=== PATIENT | male | born 1995 | race African-American/Black ===

== ENCOUNTER 2017-01-26 20:25 | Inpatient (IN) | payer OTHER ==
--- NOTE | ~2017-01-26 | CT71 ---
[facility] A Service of [facility] RADIOLOGY TEXT RESULTS PATIENT: YESI ALLEN LOCATION: [place] [address]23 : [birth year] UNIT #: [id number] AGE: [address]: Cristo Higginbotham MD SEX: M ORDER DR: [id number] [place] [id number] [facility]. [place], [place] [address] [id number] I MR#: [id number] Acc #: [id number] NAME: YESI ALLEN : 1995 SEX: M STUDY DATE/TIME: 01/26/2017 20:36 UNIT: [facility] ROOM: [facility] STUDY DESCRIPTION: CT Head Wo Contrast Attending Physician: Cristo Higginbotham M.D. Ordering Physician: William Neil D.O. Primary Care Physician: Bre Wick MEDICAL IMAGING REPORT This report is preliminary unless electronic signature is present EXAM Noncontrast head CT. HISTORY: Seizure today, unresponsive, on a ventilator. patient with cerebral palsy. The CT exam was performed with one or more of the following radiation dose reduction techniques: automatic exposure control, adjustment of mA and/or kV according to patient size, and iterative reconstruction. FINDINGS Axial noncontrast imaging of brain demonstrates the brain parenchyma to be normal. No mass, mass effect or midline shift. No hemorrhage or abnormal extraaxial fluid collections. The skull base, mastoids unremarkable. Sphenoid and ethmoid sinus mucosal disease. Fluid noted in the nasal cavity. This is not unexpected in this patient who is apparently intubated. IMPRESSION No acute intracranial abnormality identified. Dictated by... Piero Mcfarland M.D. THIS IS AN ELECTRONICALLY VERIFIED REPORT Piero Mcfarland M.D. at 01/27/2017 6:33 PM FEDE/roxanna TD: 01/27/2017 09:39 JOB #: [id number] [facility] A Service [facility] RADIOLOGY TEXT RESULTS PATIENT: YESI ALLEN LOCATION: [facility]3-23 : [birth year] UNIT #: [id number] AGE: [address]: Cristo Higginbotham MD SEX: M ORDER DR: MEDICAL IMAGING REPORT COPY
--- NOTE | ~2017-01-26 | CR72 ---
[facility] A Service of [facility] RADIOLOGY TEXT RESULTS PATIENT: YESI ALLEN LOCATION: [address] : [birth year] UNIT #: [id number] AGE: [address]: Cristo Higginbotham MD SEX: M ORDER DR: [id number] [facility] [address] [place], [place] [address] [id number] I MR#: [id number] Acc #: [id number] NAME: YESI ALLEN : 1995 SEX: M STUDY DATE/TIME: 01/27/2017 6:17 UNIT: [facility] ROOM: [facility] STUDY DESCRIPTION: CR Chest Single View Portable Attending Physician: Crsito Higginbotham M.D. Ordering Physician: Julieth Trevino M.D. Primary Care Physician: Bre Wick MEDICAL IMAGING REPORT This report is preliminary unless electronic signature is present EXAM Portable chest 01/27 COMPARISON 01/26 HISTORY Respiratory failure for 2 days. Seizures on ventilator FINDINGS AP view of the chest is obtained. Cardiac size is stable. Severe kyphoscoliosis is present. Continues to be infiltrates in the right upper and right lower lobe. Left lung appears significantly clear and there are improved lung volumes. Neural stimulator device is present in the left chest wall. CONCLUSION 1. ET tube in good position. 2. Slightly better aeration of the lungs with continued infiltrates in the right upper lower lobe. Dictated by... Cameron Ceja M.D. THIS IS AN ELECTRONICALLY VERIFIED REPORT Cameron Ceja M.D. at 01/27/2017 3:37 PM MORENITA/marina TD: 01/27/2017 12:12 JOB #: [id number] MEDICAL IMAGING REPORT COPY
--- NOTE | ~2017-01-26 | CO ---
Unit #: [id number] #: [id number] Patient: YESI ALLEN [id number] [address] [place], [place] [address] [id number] I MR#: [id number] NAME: YESI ALLEN ROOM: [facility] Age: 21 Sex: M Admission Date: 01/26/2017 : 1995 Attending Physician: Cristo Higginbotham M.D. Primary Care Physician: Bre Wick Consultation Date: 01/27/2017 CONSULTATION REPORT HISTORY OF PRESENT ILLNESS This is a 20-year-old gentleman with a history of seizures occurring approximately 3 times a week; however, he only developed status epilepticus requiring hospitalization about every 2 to 3 years. Yesterday morning, the patient had a seizure approximately 9:00 a.m. He had a repeat seizure about 3:00 in the afternoon, oral medication which is given to him usually did not help. Therefore, the patient was brought to the hospital and placed on a ventilator and placed on propofol. Sputum is pending; however, chest x-ray shows kind of diffuse hazy infiltrates, possibly some increased infiltrate in the right lower lobe and right middle lobe. The patient has no history of prior symptoms. Urinalysis was negative. His seizure medications have not been changed lately and most of the history is obviously obtained from the sister and mother as the patient is on the bed and unable to respond. The patient has not had any seizure-like activity since initially placed on propofol and we have been asked to try to wean down propofol. Neurology is seeing. The patient's influenza is negative. Procalcitonin however is 0.67. PAST MEDICAL HISTORY Cerebral palsy with dystonia seizures; port, status post removal; PEG tube; vagal nerve stimulator; baclofen pump; previous hip fracture secondary to seizures. ALLERGIES The patient has history of allergy to Ativan as well to Tegretol and oxycodone. HOME MEDICATIONS Include Maalox 30 mg at bedtime, methadone 5 mg per G-tube t.i.d., Carafate 1 g q.i.d., Tylenol 325 mg every 6 hours p.r.n., Proventil nebulizer q.4 hours p.r.n., calcium carbonate 1600 mg p.o. daily, Klonopin 1 mg at bedtime, Valium 12.5 mg p.r.n. daily, acidophilus one capsule 3 times daily, perampanel 10 mg at bedtime, Phenobarb 9.275 per PEG twice daily, Rufinamide p.o. three times daily, Lacosamide 200 mg per Dobbhoff tube b.i.d. SOCIAL HISTORY The patient lives at home with family. Lifelong nonsmoker. No alcohol. He is fed 6 cans of Ensure a day and free water flushes x2. FAMILY HISTORY Positive for seizures. REVIEW OF SYSTEMS Unit #: [id number] #: [id number] Patient: YESI ALLEN Obtainable only from family and is noncontributory as the patient is intubated. PHYSICAL EXAMINATION VITAL SIGNS: T-current 98.4, respiratory rate 15, pulse is 78, blood pressure 103/71. The patient is on AC 500, rate of 16, PEEP of 5, 50% FiO2. In's and out's 490 and 110. CHEST: Decreased breath sounds bilaterally. CARDIOVASCULAR: Regular rate. No gallop. ABDOMEN: Soft, nontender, and nondistended. HEENT: Head is normocephalic and atraumatic. DIAGNOSTIC STUDIES LABORATORY RESULTS: White count 16.5, hemoglobin 8.3, platelets of 308. BUN and creatinine 11/0.8, 91 on glucose, 23 on bicarb. Albumin is 2.9. ASSESSMENT AND PLAN 1. Status epilepticus. Urinalysis is negative. EEG is pending. We are going to try to wean him off propofol and change him to Versed. If we are able to control him with p.r.n., we will see if we can get the EEG this morning. We are going to do a viral respiratory panel. We are going to try to wean propofol, we are sending for strep pneumo antigen and Legionella antigen. 2. Seizure trigger were concerned for infection. The patient is being covered with Zosyn for aspiration pneumonia. I am going to add azithromycin for atypical pneumonia. Family states that he has had pneumonia approximately 2 weeks ago, though more likely this is probably new infection secondary to the aspiration. We are going to see if the patient may be extubated today following propofol weaning and if the patient is able to come off the Versed, the patient is on his home antiseizure medications. These will be adjusted by Neurology. Thank you very much for this consult and allowing us to participate in the care of this patient. Please page me at [phone] if you have any questions. Dictated by... Jovita Villatoro/john TD: 01/28/2017 05:15 JOB #: [id number] CONSULTATION REPORT X Dakota Tang MD X CONSULTATION REPORT
--- NOTE | ~2017-01-26 | CR72 ---
[facility] A Service of [facility] & [facility] RADIOLOGY TEXT RESULTS PATIENT: YESI ALLEN LOCATION: [address] : [birth year] UNIT #: [id number] AGE: [address]: Cristo Higginbotham MD SEX: M ORDER DR: [id number] [facility] [address] [place], [place] [address] [id number] I MR#: [id number] Acc #: [id number] NAME: YESI ALLEN : 1995 SEX: M STUDY DATE/TIME: 01/26/2017 20:28 UNIT: [facility] ROOM: [facility] STUDY DESCRIPTION: CR Chest Single View Portable Attending Physician: Cristo Higginbotham M.D. Ordering Physician: William Neil D.O. Primary Care Physician: Bre Rios M.D. MEDICAL IMAGING REPORT This report is preliminary unless electronic signature is present EXAM AP portable chest. HISTORY Seizures, shortness of air. Endotracheal tube placement. FINDINGS Portable view of the chest demonstrates endotracheal tube in satisfactory position, 4.4 cm above art. There are low lung volumes with some patchy right upper lobe parenchymal opacity which could represent possible aspiration pneumonia. Mild diffuse pulmonary vascular congestion. Air distension of the stomach may be related to ventilatory efforts. Neural stimulator noted over the left chest lead extending into the cervical region. No visible pneumothorax. Heart and mediastinum unremarkable. Dictated by... Piero Mcfarland M.D. THIS IS AN ELECTRONICALLY VERIFIED REPORT Piero Mcfarland M.D. at 01/27/2017 6:33 PM FEDE/stephon TD: 01/27/2017 09:36 JOB #: [id number] MEDICAL IMAGING REPORT COPY
--- NOTE | ~2017-01-26 | DS ---
Unit #: [id number] #: [id number] Patient: YESI ALLEN [id number] [address] [place], [place] [address] [id number] I MR#: [id number] NAME: YESI ALLEN ROOM: 553 Age: 21 Sex: M Admission Date: 01/26/2017 : 1995 Discharge Date: Attending Physician: Cristo Higginbotham M.D. Primary Care Physician: Bre Rios M.D. DISCHARGE SUMMARY REASON FOR ADMISSION Status epilepticus. HISTORY OF PRESENT ILLNESS/HOSPITAL COURSE The patient is a 21-year-old nonverbal male with underlying history of cerebral palsy, MRDD, dystonia, chronic contracted state, was brought in by the patient's mother secondary to intractable seizure activity while the patient was at home. Complete history as well as review of systems was elicited from her as the patient essentially was nonverbal. Secondary to respiratory compromise as well as ongoing seizure activity, the patient was electively intubated in the emergency room and subsequently placed in ICU. Consultation was placed to fiberglass boat builder Dr. Tang saw and evaluated the patient while he was there, concern for possible aspiration given the recurrent seizure activity. Therefore, he was placed on IV Zosyn. In regard to his respiratory status, Dr. Tang followed the patient. Gradually, the patient was transitioned off ventilator. His IV Zosyn was transitioned into Augmentin suspension and he has otherwise done well. His blood cultures did not reveal any acute bacterial growth. His sputum culture did reveal Klebsiella. In regard to his seizure activity as well as intractable seizures, we did place consultation of Dr. Floyd of Neurology Services. His medications were adjusted. Please see below for details. It should be noted that the patient's mother states that the patient is well supported as an outpatient with an outpatient neurologist and she stated that she will discuss with him at the time of discharge. The patient did have decreased hemoglobin at one point, his hemoglobin did drop close to 6.7. He was transfused 2 units of packed red blood cells. Consultation was placed to Dr. Osman of Gastroenterology Service. The patient did receive Protonix drip. I initiated discussion and consideration of possible upper GI and/or possible colonoscopy; however, today at time of discharge, the patient's hemoglobin now stands at 9.9. His MCV is also decreased to 67, seems likely the patient is iron deficient and I did recommend to her that at some point in time, the patient should have endoscopic evaluation in addition to iron replacement and she expressed understanding and she wishes to take the patient home today. From medical standpoint, the patient appears currently stable. Overall, his long-term prognosis secondary to his associated comorbid conditions is poor and the patient's mother is aware. Unit #: [id number] #: [id number] Patient: YESI ALLEN FINAL DISCHARGE DIAGNOSES 1. Intractable seizures. 2. Acute respiratory failure secondary to presumed aspiration pneumonia. 3. Cerebral palsy. 4. Chronic contracted state. 5. Percutaneous endoscopic gastrostomy tube placement in the past. 6. Prior history of baclofen pump placement. 7. Anemia likely multifactorial secondary to iron deficiency, may be occult GI loss. Outpatient evaluation is recommended. 8. Klebsiella sputum. FINAL DISCHARGE MEDICATIONS Albuterol nebulizer solution q.4 p.r.n.; Tylenol 650 mg G-tube q.6 p.r.n.; Vimpat 300 mg G-tube b.i.d.; Keppra 500 mg G-tube daily x2 days, then discontinue; probiotic t.i.d.; Klonopin q.h.s.; phenobarbital b.i.d.; Diastat 10 mg p.r.n.; Carafate 1 g G-tube q.6; methadone 5 mg G-tube t.i.d.; Augmentin suspension 875 mg b.i.d. x7 days; Protonix suspension G-tube b.i.d.; ferrous sulfate liquid G-tube b.i.d. DISCHARGE CONDITION Stable. DISCHARGE DISPOSITION Home. Dictated by... Jovita Ford/john TD: 02/01/2017 00:29 JOB #: [id number] DISCHARGE SUMMARY X Cristo Higginbotham MD X DISCHARGE SUMMARY
--- NOTE | ~2017-01-26 | A ---
[facility] DATE: 01/27/17 Patient: YESI ALLEN Physician: LINK Address: [address] Room/Bed: [address], Zip: [place] [address] Admit Date: 01/26/17 Date of : [birth year] Height: 5 0 Weight: 99 45 NUTRITIONAL ASSESSMENT: REASON: ENTERAL NUTRITION/ NPO STATUS IN ICU ASSESSMENT 21 YO MALE ADMITTED FOR STATUS EPILEPTICUS PMH: Ulcerative esophagitis (recent diagnosis per pt's mother), acute GI bleed, cerebral palsy, dystonia, epilepsy, contracted legs, PEG (pediatric per RN report), vagal nerve stimulator, hip fracture, pancreatitis Anthropometrics: Ht: 5'0" Adm wt: 45 kg BMI: 19.4 IBW: 48.2 kg, 93% IBW Labs: Ca++ 8.1 Alb 2.9 Meds: Propofol @ 13.5 mL/hr, baclofen pump, versed, NaCl, protonix, KCl I/O & Bowel function: 490/110, last BM unknown, pediatric PEG tube per RN report (family brought in adapter) Skin Integrity: Small blister to coccyx Scars- BLE/ chest/ abdomen Baclofen pump RLQ Edema: none noted Estimated Nutrition Needs: 4170-3158 kcals (35-40 kcals/kg) 67-81 grams protein (1.5-1.8 grams/kg) Assessment: Chart reviewed, events noted. Pt admitted for status epilepticus and possible aspiration PNA. Pt is intubated and sedated in the ICU. Propofol is providing 356 kcals from lipids at this time; however, RN reports it will be discontinued after the current bottle. Pt has a pediatric PEG tube present upon admission per RN report. RD spoke with the pt's mother (and caregiver) at bedside. The pt's mother reports that the pt has lost ~16# in ~3 months due to being sick, in a out of the hospital. Apparently the pt typically consumes food PO and receives six Ensure via his PEG with gravity bag for supplemental nutrition due to weight loss. Pt's mother also reports that he has gastritis, and his MD suggested that he eats only soft foods for now. Pt's mother states that he has had multiple MECHANICAL CAR CHECKER evaluations, and that she uses thickener in his drink "sometimes"; however, she does not seem to think he was supposed to only consume thickened liquids, and also gives him thin liquids. RD reported concern to RN about this, as the pt has aspiration PNA noted in chart. [facility] DATE: 01/27/17 Patient: YESI ALLEN Physician: LINK Address: [address] [place] [address] Room/Bed: [address], Zip: [place] [address] Admit Date: 01/26/17 Date of : [birth year] Height: 5 0 Weight: [address] also has concerns that the pt should not be receiving Ensure six times per day as his sole enteral nutrition source, as it is not formulated for enteral, sole source nutrition. RD confirmed this with [facility] nutritional yeast supervisor and discussed this further with RN and the pt's mother. Pt's mother reports that they do not want to use Jevity and will continue to use Ensure after discharge regardless of what RD recommends. RD explained that there are several other enteral nutrition options, and explained that Vital 1.5 would be recommended while the pt is here. Please see recommendations below. Dx: Inadequate protein-energy intake RT clinical condition AEB NPO status. Intervention: 1. Enteral nutrition once medically feasible 2. MECHANICAL CAR CHECKER once extubated Monitoring, Evaluation and Goals: 1. Enteral nutrition; provide >80% goal volume x 24 hrs 2. Labs; WNL 3. Weight; prevent weight loss, promote gradual weight gain 4. Skin; prevent breakdown Recommendations: 1. Once medically feasible, start continuous enteral nutrition with Vital 1.5 @ 20 mL/hr. Increase by 10 mL q 8 hrs as tolerated to goal of 50 mL/hr. This will provide: 1800 kcals/ 81 grams protein/ 912 mL free H20 2. If the pt is extubated, consult MECHANICAL CAR CHECKER to evaluate the pt before PO diet advances. Pt has noted aspiration PNA, and pt's mother reports that he has had several MECHANICAL CAR CHECKER evaluations in the past. See assessment above. Pt is at moderate-severe nutritional risk. Respectfully, MAXIMILIANO SOTELO RD, LD [facility] cc: client file
--- NOTE | ~2017-01-26 | HP ---
Unit #: [id number] #: [id number] Patient: YESI ALLEN [id number] [address] [address] [id number] I MR#: [id number] NAME: YESI ALLEN ROOM: [facility] Age: 21 Sex: M Admission Date: 01/26/2017 : 1995 Attending Physician: Julieth Trevino M.D. Primary Care Physician: Bre Rios M.D. HISTORY AND PHYSICAL CHIEF COMPLAINT Status epilepticus. HISTORY This 21-year-old male with cerebral palsy and dystonia, also history of seizures, is admitted for status epilepticus. Patient currently is intubated, and history is obtained from mother at bedside. She states the patient generally has a seizure once a week or every other week. He does have a vagal nerve stimulator in place and is on multiple anti-epileptic drugs. Today, he had a short seizure this afternoon which she treated with Diastat. He then had a second seizure which lasted, I'm told, about 50 minutes from the time it started until the time he presented to this ER. He was electively intubated by the ER physician, given IV fluids, 5 mg of IV versed, then given a gram of Keppra, 200 mg of Vimpat. Chest x-ray is suspicious for right upper lobe aspiration pneumonia. He was therefore treated with Zosyn, vancomycin, tobramycin. The case was also discussed with Dr. Floyd. PAST MEDICAL HISTORY 1. Cerebral palsy with dystonia. 2. Seizures. 3. Port, which was later removed. 4. PEG tube. 5. Vagal nerve stimulator. 6. Baclofen pump. 7. Previous hip fracture secondary to seizures. Hardware was later removed. ALLERGIES Ativan causing decreased respirations. Also allergic to Tegretol and oxycodone. HOME MEDICATIONS 1. Vimpat. 2. Topamax. 3. Phenobarb. 4. Banzel. 5. Fycompa. 6. Protonix. 7. Diastat rectal gel. 8. Klonopin. 9. Clonidine. 10. Atarax. Unit #: [id number] #: [id number] Patient: YESI ALLEN The nurses are getting me a list. FAMILY HISTORY Seizures. SOCIAL HISTORY The patient lives with family. He is a lifelong nonsmoker does not drink alcohol. He is usually fed six cans of Ensure each day with 150 mL of free water flushes. REVIEW OF SYSTEMS Impossible to obtain as patient currently is intubated and is sedated. PHYSICAL EXAMINATION GENERAL APPEARANCE: Thin, young 21-year-old male who is orally intubated. VITAL SIGNS: Temperature 97.8, pulse was as high as 140, currently is 60, respirations 27, initial blood pressure 125/79. O2 saturation is 100% on current vent settings. HEENT: Eyes PERRLA. Pharynx - patient is orally intubated. NECK: Supple without adenopathy or thyromegaly. CHEST: Clear. CARDIAC: Normal S1 and S2 without murmur. There is a vagal nerve stimulator left upper chest. ABDOMEN: Bowel sounds are diminished. There is a PEG tube in place. Nontender. No hepatosplenomegaly or masses. EXTREMITIES: Without edema. The patient does have flexion contractions of his legs bilaterally. NEUROLOGIC EXAM: The patient currently is sedated on a ventilator. DIAGNOSTIC STUDIES LABORATORY: Admission labs - hematocrit is 32.8 with an MCV of 64, white blood count is 11, normal platelet count. One band noted. SMA-12 - glucose 121, chloride is 99, albumin is 3.4, alkaline phos. 104, lactic acid 3.3. Phenobarb 37. ABG - pH 7.11, pCO2 57, pO2 191, O2 saturation 97.4% on tidal volume 450, AC 14, FIO2 60%, PEEP of 5. Urine tox screen positive for methadone, benzos and barbiturates. Urinalysis - 1+ protein. IMAGING: Chest x-ray - right upper lobe infiltrate. Head CT - no acute disease. CARDIOVASCULAR: EKG - sinus tachycardia, rate 110. ASSESSMENT 1. Status epilepticus requiring intubation. 2. Aspiration pneumonia. 3. Microcytic anemia: Patient was [facility] and GI bleed about a month ago. 4. Cerebral palsy with PEG tube in place, immobilization syndrome, Unit #: [id number] #: [id number] Patient: YESI ALLEN history of seizures on multiple anti-epileptic drugs and with a vagal nerve stimulator. PLANS 1. IV fluids. 2. Neurology was consulted. 3. Anti-epileptic drugs to be given. 4. Antibiotics pending sputum blood cultures. 5. Pulmonary consultation. 6. SCDs for DVT prophylaxis. 7. Request old records from [facility]. 8. NG-tube will be placed. Dictated by Julieth Trevino M.D. AML/df TD: 01/27/2017 05:25 JOB #: [id number] HISTORY AND PHYSICAL X Julieth Trevino MD X HISTORY AND PHYSICAL
--- NOTE | ~2017-01-26 | EE ---
Unit #: [id number] #: [id number] Patient: YESI ALLEN [id number] [address] [address] [id number] I MR#: [id number] NAME: YESI ALLEN : 1995 SEX: M STUDY DATE/TIME: 01/27/2017 UNIT: [facility] ROOM: [facility] STUDY DESCRIPTION: EEG Attending Physician: Cristo Higginbotham M.D. Referring Physician: Julieth Trevino M.D. Primary Care Physician: Bre Wick NEURODIAGNOSTICS REPORT EXAM Electroencephalogram. REASON FOR STUDY Seizures and status. No prior EEGs available to compare. EEG DESCRIPTION This is an inpatient, portable, digitally recorded multi-montage adult EEG with leads placed according to the International 10-20 System. Hyperventilation and photic stimulation was not done. This EEG shows background slowing. Most of the activity was 4-5 Hz. The patient did have stage 2 sleep. There was some subtle slowing seen between C3 and P3 and sometimes between F3 and C3 and occasionally some phase reversing was seen mostly between C3 and P3, but looked like slow wave phase reversing, not active spike and wave-type discharges. This was a reactive EEG. I saw the patient while the patient was having EEG done. There is nothing suggesting seizures, actively status, or interictal discharges, though he was not having any clinical events either. IMPRESSION Abnormal EEG with diffuse slowing and some focal features with central parietal slowing and some phase reversing on the left side. Nothing suggesting active seizure or status, so clinical correlation is recommended. Dictated by... Jovita Carrizales/annelise TD: 01/28/2017 20:58 JOB #: [id number] Unit #: [id number] #: [id number] Patient: YESI ALLEN NEURODIAGNOSTICS REPORT X Lili Floyd MD NEURODIAGNOSTICS REPORT
--- NOTE | ~2017-01-26 | CR72 ---
[facility] A Service of [facility] & [facility] RADIOLOGY TEXT RESULTS PATIENT: YESI ALLEN LOCATION: [place] [address] : [birth year] UNIT #: [id number] AGE: [address]: Cristo Higginbotham MD SEX: M ORDER DR: [id number] [facility] [address] [place], [place] [address] [id number] I MR#: [id number] Acc #: [id number] NAME: YESI ALLEN : 1995 SEX: M STUDY DATE/TIME: 01/31/2017 4:01 UNIT: [facility] ROOM: [facility] STUDY DESCRIPTION: CR Chest Single View Portable Attending Physician: Cristo Higginbotham M.D. Ordering Physician: Martin Tang M.D. Primary Care Physician: Ber Rios M.D. MEDICAL IMAGING REPORT This report is preliminary unless electronic signature is present EXAM AP portable chest 01/31/2017. HISTORY Respiratory failure. Exam for followup. TECHNIQUE AP portable chest x-ray. FINDINGS The examination is stable following extubation since 01/28/2017. Persistent patchy infiltrate in the right upper and right lower lobe. Left lung clear. Heart size normal. Central venous catheter in good position. Severe congenital scoliosis. Vagus nerve stimulator in place. IMPRESSION Stable portable chest radiograph following extubation since 01/28/2017. Dictated by... iRgo Chaparro M.D. THIS IS AN ELECTRONICALLY VERIFIED REPORT Rigo Chaparro M.D. at 02/01/2017 5:30 AM ANA/casey TD: 02/01/2017 02:52 JOB #: [id number] MEDICAL IMAGING REPORT COPY
--- NOTE | ~2017-01-26 | CR72 ---
[facility] A Service of [facility] & [facility] RADIOLOGY TEXT RESULTS PATIENT: YESI ALLEN LOCATION: [address] : [birth year] UNIT #: [id number] AGE: [address]: Cristo Higginbotham MD SEX: M ORDER DR: [id number] [facility] [address] [place], [place] [address] [id number] I MR#: [id number] Acc #: [id number] NAME: YESI ALLEN : 1995 SEX: M STUDY DATE/TIME: 01/27/2017 16:14 UNIT: [facility] ROOM: [facility] STUDY DESCRIPTION: CR Chest Single View Portable Attending Physician: Cristo Higginbotham M.D. Ordering Physician: Julieth Trevino M.D. Primary Care Physician: Bre Wick MEDICAL IMAGING REPORT This report is preliminary unless electronic signature is present EXAM Single view chest HISTORY Central line placement today. COMPARISON: 01/27/2017 at 06:17 hours FINDINGS Endotracheal tube remains in satisfactory position. There has been placement of a left neck approach central line terminating near the cavoatrial junction. Deformity of the thorax suggests underlying scoliosis. Electronic device seen over the left chest with leads extending into the left neck region may represent a vagal stimulator. Small amount of right upper lobe parenchymal opacities suggest focal airspace disease or atelectasis. Right-sided volume loss with elevation right hemidiaphragm. The heart and mediastinum unremarkable. No visible pneumothorax. Dictated by... Piero Mcfarland M.D. THIS IS AN ELECTRONICALLY VERIFIED REPORT Piero Mcfarland M.D. at 01/28/2017 2:05 PM FEDE/roxanna TD: 01/28/2017 08:08 JOB #: [id number] MEDICAL IMAGING REPORT COPY
--- NOTE | ~2017-01-26 | EKG ---
PATIENT: YESI ALLEN UNIT #: [id number] Ventricular Rate: 111 BPM Atrial Rate: 111 BPM P-R Interval: 126 ms QRS Duration: 72 ms Q-T Interval: 300 ms QTC Calculation(Bezet): 408 ms P Welch: 67 degrees Calculated R Welch: 62 degrees Calculated T Welch: 39 degrees Diagnosis Line: Sinus tachycardia Diagnosis Line: Possible Left atrial enlargement Diagnosis Line: Nonspecific T wave abnormality Diagnosis Line: Abnormal ECG Diagnosis Line: No previous ECGs available Diagnosis Line: Confirmed by GEOVANY LYLE MD ([id number]) on Diagnosis Line: 01/27/2017 8:18:36 AM INTERPRETING MD: VALDO ARAGON
--- NOTE | ~2017-01-26 | FU ---
[facility] Nutrition Therapy DATE: 01/30/17 Patient: YESI ALLEN Physician: LINK Address: [address] Room/Bed: [address], Zip: [place] [address] Admit Date: 01/26/17 Date of : [birth year] Height: 5 0 Weight: 139 63.5 NUTRITION MONITORING/FOLLOW-UP: Reason: Nurtrition follow up Anthropometrics: Ht: 60" Wt: 45 kg BMI: 19.4 Wt 01/30: 63.5 kg Labs: Na+ 134 K+ 3.2 BUN <5 Ca++ 7.3 Alb 2.4 Mg++ 1.5 Meds: Protonix, miralax, MgSO4, KCl, NaCl I&O's: 3856/4790, last BM 01/25, abdomen soft, nondistended Skin: No changes noted Edema: none noted Estimated Nutrition Needs: 5509-7615 kcals (35-40 kcals/kg) 67-81 grams protein (1.5-1.8 grams/kg) Diet: NPO Assessment: Chart reviewed, events noted. Pt remains in ICU, is now extubated and will likely transfer to tele floor today per RN report. Pt remains NPO without any enteral nutrition. Of note, the pt has been NPO/ no nutrition since admission (x [address] recommended to RN that the pt has an COMPUTER NETWORKER evaluation, as the pt's mother previously reported that the pt eats and receives enteral nutrition. Please see recommendations below. Dx: Inadequate protein-energy intake RT clinical condition AEB NPO status- REMAINS, NO IMPROVEMENT. Intervention: 1. COMPUTER NETWORKER 2. Enteral nutrition once medically feasible Monitoring, Evaluation and Goals: 1. Enteral nutrition; provide >80% estimated needs while the pt remains NPO 2. Labs; WNL: electrolytes 3. Weight; prevent weight loss 4. Skin; promote healing [facility] Nutrition Therapy DATE: 01/30/17 Patient: YESI ALLEN Physician: LINK Address: [facility] JOSE MARES Room/Bed: [address], Zip: [place] [address] Admit Date: 01/26/17 Date of : [birth year] Height: 5 0 Weight: 139 63.5 Recommendations: 1. Consider COMPUTER NETWORKER evaluation, as the pt remains NPO and his mother previously reported that he has had several COMPUTER NETWORKER evals in the past. Pt's mother has also used thickened liquids; however, she reported that she does not always use them. 2. Initiate continuous enteral nutrition to meet 100% of the pt's nutrient needs while he remains NPO. Recommend starting Vital 1.5 @ 20 mL/hr. Increase by 10 mL q 6 hrs as tolerated to goal of 50 mL/hr. This would provide: 1800 kcals/ 81 grams protein/ 912 mL free H20 If the pt tolerates Vital 1.5, may consider switching to a standard formula (Jevity 1.5) to determine tolerance Status: Pt is at moderate nutritional risk. RD will continue to follow. Respectfully, MAXIMILIANO SOTELO RD, LD [employer] and Nutritional Services [facility] cc: client file
--- NOTE | ~2017-01-26 | CR72 ---
[facility] A Service of [facility] & [facility] RADIOLOGY TEXT RESULTS PATIENT: YESI ALLEN LOCATION: [address] : [birth year] UNIT #: [id number] AGE: [address]: Cristo Higginbotham MD SEX: M ORDER DR: [id number] [facility] [address] [place], [place] [address] [id number] I MR#: [id number] Acc #: [id number] NAME: YESI ALLEN : 1995 SEX: M STUDY DATE/TIME: 01/28/2017 3:59 UNIT: [facility] ROOM: [facility] STUDY DESCRIPTION: CR Chest Single View Portable Attending Physician: Cristo Higginbotham M.D. Ordering Physician: Martin Tang M.D. Primary Care Physician: Bre Wick MEDICAL IMAGING REPORT This report is preliminary unless electronic signature is present EXAM AP portable chest DATE 01/28/2017 at 03:59 HISTORY 21-year-old male with shortness of breath, pneumonia, on the ventilator. Symptoms began on 01/26/2017. Status epilepticus. COMPARISON AP portable chest 01/27/2017 at 16:14 FINDINGS Ill-defined infiltrate is present within the right upper lobe adjacent to the minor fissure, unchanged. There may be a new mild right basilar atelectasis in the costophrenic angle. The left lung, however, remains clear. Heart size is stable and within normal limits. ET tube remains in the mid thoracic trachea. Left IJ central line tip extends to the cavoatrial junction. No visible pneumothorax. Stable asymmetric elevation of the right hemidiaphragm. Thoracolumbar scoliosis. A generator device projects over the left chest with lead extending into the left neck. IMPRESSION Right upper lobe airspace disease, unchanged. New or slight increase in right basilar atelectasis or infiltrate adjacent to the diaphragmatic margin compared to yesterday's study. Supporting lines and tubes appear stable. No visible pneumothorax. Dictated by... Melanie Zarate M.D. [facility] A Service of [facility] & [facility] RADIOLOGY TEXT RESULTS PATIENT: YESI ALLEN LOCATION: [facility]23 : [birth year] UNIT #: [id number] AGE: [address]: Cristo Higginbotham MD SEX: M ORDER DR: THIS IS AN ELECTRONICALLY VERIFIED REPORT Melanie Zarate M.D. at 01/28/2017 10:25 PM [facility]/alber TD: 01/28/2017 13:32 JOB #: [id number] MEDICAL IMAGING REPORT COPY
--- NOTE | ~2017-01-26 | CO ---
Unit #: [id number] #: [id number] Patient: YESI ALLEN [id number] [facility] [address] [place], [place] [address] [id number] I MR#: [id number] NAME: YESI ALLEN ROOM: [facility] Age: 21 Sex: M Admission Date: 01/26/2017 : 1995 Attending Physician: Cristo Higginbotham M.D. Primary Care Physician: Bre Wick Consultation Date: 01/27/2017 CONSULTATION REPORT PRIMARY CARE PHYSICIAN Bre Rios M.D. PRIMARY NEUROLOGIST Dr. Donis. REASON FOR CONSULTATION Status epilepticus. PATIENT IDENTIFICATION This is a 21-year-old right-handed male evaluated in ICU room 23 at [facility]. SOURCE OF INFORMATION Obtained from the patient's mother as well as the medical record and medical staff. HISTORY OF PRESENT ILLNESS This is a 21-year-old right-handed male with a past medical history of cerebral palsy with dystonia, epilepsy, vagal nerve stimulator, and PEG tube, who presented to [facility] with intractable seizures. According to his mother, he has a few seizures a month, usually relieved with Diastat at home. He also has a vagal nerve stimulator, which she states the battery was just recently replaced. She does state that it is on a "low setting." Apparently, he had a seizure yesterday and received Diastat around 3:00 p.m., but she reports she was unable to use it again as she was worried about his respiratory status and he had a further seizure event that lasted for over an hour. She tried the vagal nerve stimulator and reports that it did not work either. He was brought to the ER for further evaluation. His seizure was unrelenting. The patient was brought to this facility, where he was electively intubated by the ED physician given IV fluids, 5 mg of IV Versed, and was also given 1 g of Keppra and 200 mg of Vimpat. Chest x-ray was done, which was suspicious for right upper lobe aspiration pneumonia. Thus, he was started on antibiotics which included Zosyn, vancomycin, and tobramycin. The patient was admitted for further evaluation. The case was discussed with Dr. Floyd at that time. He is being continued on his home medications which his mother brought in today via his PEG tube. He was also started on Keppra in the ED out of concern for status epilepticus and his Vimpat was increased and I did speak with his mother and she states that he does not have an allergy to Keppra, but has an intolerance given behavioral change. Therefore, we will avoid going up on Keppra unless necessary and we will work on tapering that down when the patient is stable. She did note that he has an allergy to Unit #: [id number] #: [id number] Patient: YESI ALLEN Tegretol, which is not documented in the medical record. The patient was just recently treated at [facility] in a few weeks ago for GI bleeding and pneumonia. The patient's mother states that he has not been having any other problems. The patient is unable to provide any history or review of systems given his intubation and sedation and mental status. PAST MEDICAL HISTORY 1. Cerebral palsy with dystonia. 2. Epilepsy. The patient's mother states that he follows Dr. Donis with [facility]. 3. Port which has been removed. 4. Vagal nerve stimulator. She states that the battery was just replaced recently. 5. PEG tube. 6. Baclofen pump. 7. Previous hip fracture secondary to seizures. Hardware was later removed. ALLERGIES Ativan which causes decreased respirations, Tegretol, Oxycodone. HOME MEDICATIONS Include Maalox suspension, methadone, Carafate, Tylenol, Proventil, calcium carbonate, Klonopin, Valium, acidophilus lactobacillus, Fycompa, phenobarbital, Banzel, Vimpat. FAMILY HISTORY Positive for seizure disorder. SOCIAL HISTORY The patient lives with his mother and family. He is a lifelong nonsmoker and nondrinker. No illicit drug use. He is fed 6 cans of Ensure each day with 150 mL of free water flushes. REVIEW OF SYSTEMS Unable to obtain from the patient given his mental status. PHYSICAL EXAMINATION VITAL SIGNS: Temperature 98.6, pulse 91, respirations 12, blood pressure 101/65, oxygen saturation 100% on the ventilator. Height 5 feet 0 inches, weight 99 pounds, BMI 19. NEUROLOGIC: The patient is sedated, limiting neurologic exam. He does withdraw to noxious stimuli in the extremities. He has left gaze deviation and some roving eye movements, but again equal withdrawal to noxious stimuli in the extremities. Cranial nerve exam, unable to evaluate honeycutt of vision. Eyes are as discussed above. No ptosis or nystagmus or hippus seen. Extraocular movements are as discussed above. Strength of muscles of facial expression appear to be symmetric. Unable to assess hearing, tongue, uvula, or palate, head turning, or shoulder shrug. Neck appears to be supple. Motor exam, he withdraws bilaterally and equally to noxious stimuli. Sensory exam as discussed above. Gait and Romberg deferred. Reflexes, unable to elicit. Toes are mute. Coordination, unable to assess. DIAGNOSTIC STUDIES IMAGING STUDIES: CT of the head without contrast on 01/26/2017 shows no acute intracranial abnormality identified. Unit #: [id number] #: [id number] Patient: YESI ALLEN LABORATORY RESULTS: Legionella urine and strep pneumo are negative. Sputum culture; Gram stain sputum, many white blood cells, few epithelial cells, many gram-negative rods, moderate gram-positive cocci in pairs and chains. White count 16.5, hemoglobin 8.3, hematocrit 29, platelet count 308. Sodium 137, potassium 4, chloride 106, CO2 23, glucose 91, BUN 11, creatinine 0.8, estimated GFR above 60, calcium 8.1, total protein 7, albumin is 2.9. Procalcitonin 0.67. Lactic acid 1.3, initial lactic acid was 3.3. Influenza A and B are negative. Urinalysis is unremarkable. Urine drug screen is positive for methadone, benzodiazepines, and barbiturates which is consistent with his home med list. Phenobarbital level is 37. CARDIOVASCULAR STUDIES: EKG; sinus tachycardia, possible left atrial enlargement, nonspecific T-wave abnormality. IMPRESSION 1. Status epilepticus. The patient's current EEG done at the time of evaluation is not suggestive of active seizures or status at this time. It shows some slow-wave phase-reversing on the left side, but again no active seizures or status, which was read by Dr. Floyd at the time of evaluation. 2. Intractable epilepsy with vagal nerve stimulator. 3. Aspiration pneumonia. 4. Cerebral palsy. PLAN We initially thought about increasing the patient's Keppra, but given his intolerance and the patient's EEG showing that he is not status or actively seizing, we will monitor. His Vimpat has been increased. We are restarting his home medications via PEG tube and we will monitor him closely. He is not showing signs of active seizure. Dr. Floyd and I discussed with the patient's mom at length. Dr. Floyd's reviewed and read the EEG. It does not look like he is currently in status epilepticus. He does have some left parietal slowing and phase reversing. We will continue present antiseizure medications and follow him closely in the ICU. Please call for any further seizure activity or neurologic changes. The goal is to keep him out of status epilepticus and the patient has intractable epilepsy at baseline. Please call for any questions or issues. Nothing at this time to suggest any COMPENSATION AGENT infection. We will re-evaluate the patient closely. We thank you very much for allowing us to assist in the care of this patient. Dictated by... Meri Blackburn A.P.R.N. for Jovita Carrizales/john TD: 01/28/2017 08:09 JOB #: [id number] Unit #: [id number] #: [id number] Patient: YESI ALLEN CONSULTATION REPORT X Meri Blackburn APRN X CONSULTATION REPORT
--- NOTE | ~2017-01-26 | HP ---
Unit #: [id number] #: [id number] Patient: YESI ALLEN [id number] [address] [address] [id number] I MR#: [id number] NAME: YESI ALLEN ROOM: [facility] Age: Sex: M Admission Date: 01/26/2017 : 1995 Attending Physician: Julieth Trevino M.D. Primary Care Physician: Bre Wick HISTORY AND PHYSICAL ADDENDUM Critical care time spent in evaluating this patient was 30 minutes. Dictated by Julieth Trevino M.D. AML/ts TD: 01/27/2017 05:03 JOB #: [id number] HISTORY AND PHYSICAL X Julieth Trevino MD X HISTORY AND PHYSICAL
[2017-01-26 20:19] LABS: ARTERIAL BLD GAS O2 SATURATION 97.4 % (90.0-100.0); ARTERIAL BLOOD GAS CARBOXY HB 0.2 %sat (0.0-9.0); ARTERIAL BLOOD GAS HCO3 18.2 mmol/L; ARTERIAL BLOOD GAS MET HB 1.3 %sat (0.0-2.0)
[2017-01-26 20:20] LABS: ARTERIAL BLOOD GAS ALLEN TEST NORMAL; ARTERIAL BLOOD GAS ART SITE RIGHT RADIAL; ARTERIAL BLOOD GAS DELIVERY VENT; ARTERIAL BLOOD GAS VENT MODE AC; ARTERIAL BLOOD GAS pH 7.112 (7.350-7.450); ARTERIAL DRAW? YES
[2017-01-26 21:26] LABS: ALBUMIN SERUM 3.4 g/dL (3.5-5.0); ALKALINE PHOSPHATASE 104 U/L (32-92); ALT (SGPT) 17 U/L (10-40); AST (SGOT) 41 U/L (10-42); BILIRUBIN, DIRECT 0.1 mg/dL (0.0-0.2); BILIRUBIN,INDIRECT 0.4 mg/dL (0.0-0.9); BILIRUBIN,TOTAL 0.5 mg/dL (0.2-2.0); BLOOD UREA NITROGEN 14 mg/dL (9-23); BUN/CREATININE RATIO 12.72; CALCIUM SERUM 8.6 mg/dL (8.4-10.2); CARBON DIOXIDE 24 mmol/L (22-31); CHLORIDE 99 mmol/L (100-111); CREATININE SERUM 1.1 mg/dL (0.6-1.4); GLOM FILT RATE Estimated ABOVE60 mL/min (>60); GLUCOSE FASTING 121 mg/dL (70-110); POTASSIUM 4.3 mmol/L (3.5-5.1); PROTEIN TOTAL SERUM 8.3 g/dL (6.0-8.3); SODIUM 136 mmol/L (135-145)
[2017-01-26 21:32] LABS: URINE SOURCE CLEAN CATCH
[2017-01-26 21:52] LABS: AMPHETAMINE NEG (NEG); BARBITURATES POS (NEG); BENZODIAZEPINES POS (NEG); COCAINE NEG (NEG); MARIJUANA NEG (NEG); OPIATES NEG (NEG); TRICYCLIC ANTIDEPRESSANTS NEG (NEG); U METHADONE POS (NEG)
[2017-01-26 21:57] LABS: BASOPHIL# 0.1 X10e3 (0-0.3); BASOPHIL% 0.6 % (0-2.5); EOSINOPHIL# 0.1 X10e3 (0-0.7); EOSINOPHIL% 0.9 % (0.0-7.0); HEMATOCRIT 32.8 % (38.0-50.0); HEMOGLOBIN 9.2 gm/dL (13.0-16.0); LYMPHOCYTE# 2.4 X10e3 (1.0-3.5); LYMPHOCYTE% 21.6 % (17.0-45.0); MEAN CELL VOLUME 63.9 FL (83-96); MEAN CORPUSCULAR HGB CONC 28.2 g/dL (30-36); MEAN PLATELET VOLUME 8.3 FL (6.5-11.5); MONOCYTE# 0.5 X10e3 (0-1.0); MONOCYTE% 4.6 % (3.0-12.0); NEUTROPHIL% 72.3 % (40-75); PLATELET COUNT 238 X10e3 (140-420); RED BLOOD COUNT 5.13 X10e (3.90-5.60); RED CELL DISTRIBUTION WIDTH 20.6 % (11.0-15.5); WHITE BLOOD COUNT 11.1 X10e3 (4.0-10.5)
[2017-01-26 21:58] LABS: DIFF IND YES
[2017-01-26 22:07] LABS: URINE COLOR YELLOW
[2017-01-26 22:08] LABS: URINE APPEARANCE CLEAR
[2017-01-26 22:14] LABS: DIFFERENTIAL COMMENT GIAPLTS; PLATELET ESTIMATE NORMAL (NORMAL)
[2017-01-26 22:15] LABS: ANISOCYTOSIS MOD; MICROCYTOSIS MOD
[2017-01-26 22:16] LABS: ACANTHOCYTES PRESENT; HYPOCHROMIA SL; OVALOCYTES PRESENT; SCHISTOCYTES PRESENT; TARGET CELLS SL
[2017-01-26 22:17] LABS: URINE LEUKOCYTE ESTERASE NEG (NEG); URINE NITRATE NEG (NEG)
[2017-01-26 22:18] LABS: URINE BILIRUBIN NEG (NEG); URINE BLOOD NEG (NEG); URINE GLUCOSE NEG (NEG); URINE KETONE NEG (NEG); URINE PROTEIN 1+ (NEG); URINE UROBILINOGEN 0.2 MG/DL (NEG)
[2017-01-26 22:19] LABS: INFLUENZA A NEG (NEG); INFLUENZA B NEG (NEG)
[2017-01-26 22:25] LABS: URBCS1 AUWI 0-2 /[HPF] (0-2); URINE SQUAMOUS EPITHELIAL CELL FEW /[HPF]; UWBCS1 AUWI 0-2 (0-5)
[2017-01-26 22:26] LABS: CULTURE INDICATED? NO; U HYALINE CASTS AUWI 0-2 /[LPF]; URINE AMORPHOUS SEDIMENT AMORP PHOSPHATES
[2017-01-27] MEDS ORDERED: MAALOX SUSPENS355 ML DOB (00:12)
[2017-01-27] MEDS ORDERED: DIAZEPAM GT (00:14)
[2017-01-27] MEDS ORDERED: CARAFATE GT (00:16)
[2017-01-27] MEDS ORDERED: METHADOSE5 MG GT (00:16)
[2017-01-27] MEDS ORDERED: TYLENOL325 MG/10. GT (00:18)
[2017-01-27] MEDS ORDERED: ALBUTEROL 0.5ML INH (00:19)
[2017-01-27] MEDS ORDERED: CALCIUM CARBO1000 MG PO (00:20)
[2017-01-27 00:34] LABS: ARTERIAL BLD GAS O2 SATURATION 98.3 % (90.0-100.0); ARTERIAL BLOOD GAS CARBOXY HB 0.1 %sat (0.0-9.0); ARTERIAL BLOOD GAS HCO3 23.6 mmol/L; ARTERIAL BLOOD GAS MET HB 1.2 %sat (0.0-2.0); ARTERIAL BLOOD GAS PCO2 29.9 mmHg (35.0-45.0); ARTERIAL BLOOD GAS pH 7.505 (7.350-7.450)
[2017-01-27 00:36] LABS: ARTERIAL BLOOD GAS ALLEN TEST NORMAL; ARTERIAL BLOOD GAS ART SITE RIGHT RADIAL; ARTERIAL BLOOD GAS DELIVERY VENT; ARTERIAL BLOOD GAS VENT MODE AC; ARTERIAL DRAW? YES
[2017-01-27] MEDS ORDERED: KLONOPIN1 MG GT (00:36)
[2017-01-27] MEDS ORDERED: ACIDOPHILUS LAC1 CAP PO (00:41)
[2017-01-27] MEDS ORDERED: DIAZEPAM PR (00:41)
[2017-01-27] MEDS ORDERED: PHENOBARBITAL97.2 MG PO (00:42)
[2017-01-27] MEDS ORDERED: FYCOMPA10 MG PO (00:42)
[2017-01-27] MEDS ORDERED: BANZEL40 MG/1 ML PO (00:43)
[2017-01-27] MEDS ORDERED: VIMPAT200 MG DOB (00:43)
[2017-01-27 04:01] LABS: ARTERIAL BLD GAS O2 SATURATION 97.8 % (90.0-100.0); ARTERIAL BLOOD GAS CARBOXY HB 0.4 %sat (0.0-9.0); ARTERIAL BLOOD GAS HCO3 26.1 mmol/L; ARTERIAL BLOOD GAS MET HB 1.1 %sat (0.0-2.0); ARTERIAL BLOOD GAS PCO2 40.1 mmHg (35.0-45.0); ARTERIAL BLOOD GAS pH 7.422 (7.350-7.450)
[2017-01-27 04:07] LABS: ARTERIAL BLOOD GAS ALLEN TEST NORMAL; ARTERIAL BLOOD GAS ART SITE LEFT RADIAL; ARTERIAL BLOOD GAS DELIVERY VENT; ARTERIAL BLOOD GAS VENT MODE AC; ARTERIAL DRAW? YES
[2017-01-27 05:30] LABS: BASOPHIL% 0.1 % (0-2.5); EOSINOPHIL# 0.2 X10e3 (0-0.7); EOSINOPHIL% 1.1 % (0.0-7.0); HEMOGLOBIN 8.3 gm/dL (13.0-16.0); LYMPHOCYTE# 2.7 X10e3 (1.0-3.5); LYMPHOCYTE% 16.3 % (17.0-45.0); MEAN CELL VOLUME 62.7 FL (83-96); MEAN CORPUSCULAR HEMOGLOBIN 17.9 PG (28-34); MEAN CORPUSCULAR HGB CONC 28.6 g/dL (30-36); MEAN PLATELET VOLUME 8.8 FL (6.5-11.5); MONOCYTE# 1.5 X10e3 (0-1.0); MONOCYTE% 9.1 % (3.0-12.0); NEUTROPHIL# 12.1 X10e3 (1.5-7.1); NEUTROPHIL% 73.4 % (40-75); PLATELET COUNT 308 X10e3 (140-420); RED BLOOD COUNT 4.63 X10e (3.90-5.60); RED CELL DISTRIBUTION WIDTH 19.9 % (11.0-15.5); WHITE BLOOD COUNT 16.5 X10e3 (4.0-10.5)
[2017-01-27 05:32] LABS: DIFF IND YES
[2017-01-27 06:23] LABS: ALBUMIN SERUM 2.9 g/dL (3.5-5.0); ALKALINE PHOSPHATASE 85 U/L (32-92); ALT (SGPT) 16 U/L (10-40); AST (SGOT) 33 U/L (10-42); BILIRUBIN,TOTAL 0.4 mg/dL (0.2-2.0); BLOOD UREA NITROGEN 11 mg/dL (9-23); BUN/CREATININE RATIO 13.75; CALCIUM SERUM 8.1 mg/dL (8.4-10.2); CARBON DIOXIDE 23 mmol/L (22-31); CHLORIDE 106 mmol/L (100-111); CREATININE SERUM 0.8 mg/dL (0.6-1.4); GLOM FILT RATE Estimated ABOVE60 mL/min (>60); GLUCOSE FASTING 91 mg/dL (70-110); SODIUM 137 mmol/L (135-145)
[2017-01-27 06:45] LABS: ANISOCYTOSIS SL; MICROCYTOSIS MOD
[2017-01-27 06:46] LABS: TARGET CELLS SL
[2017-01-27 06:48] LABS: ELLIPTOCYTES PRESENT
[2017-01-27 06:49] LABS: TEAR DROP CELLS PRESENT
[2017-01-27 07:02] LABS: PLATELET ESTIMATE NORMAL (NORMAL)
[2017-01-27 14:21] LABS: LEGIONELLA AG URINE NEG (NEG)
[2017-01-28 04:27] LABS: CALCIUM SERUM 7.2 mg/dL (8.4-10.2); CARBON DIOXIDE 26 mmol/L (22-31); CHLORIDE 111 mmol/L (100-111); CREATININE SERUM 0.6 mg/dL (0.6-1.4); GLOM FILT RATE Estimated ABOVE60 mL/min (>60); GLUCOSE FASTING 127 mg/dL (70-110); SODIUM 136 mmol/L (135-145)
[2017-01-28 04:32] LABS: BLOOD UREA NITROGEN <5 mg/dL (9-23); BUN/CREATININE RATIO 8.33
[2017-01-28 04:51] LABS: BASOPHIL% 0.1 % (0-2.5); EOSINOPHIL# 0.1 X10e3 (0-0.7); EOSINOPHIL% 1.1 % (0.0-7.0); LYMPHOCYTE# 1.4 X10e3 (1.0-3.5); MEAN CELL VOLUME 60.9 FL (83-96); MEAN CORPUSCULAR HEMOGLOBIN 17.7 PG (28-34); MEAN CORPUSCULAR HGB CONC 29.1 g/dL (30-36); MEAN PLATELET VOLUME 8.2 FL (6.5-11.5); MONOCYTE# 0.9 X10e3 (0-1.0); MONOCYTE% 7.4 % (3.0-12.0); NEUTROPHIL# 10.2 X10e3 (1.5-7.1); NEUTROPHIL% 80.4 % (40-75); PLATELET COUNT 280 X10e3 (140-420); RED BLOOD COUNT 3.78 X10e (3.90-5.60); RED CELL DISTRIBUTION WIDTH 20.1 % (11.0-15.5); WHITE BLOOD COUNT 12.7 X10e3 (4.0-10.5)
[2017-01-28 04:59] LABS: DIFF IND YES; HEMOGLOBIN 6.7 gm/dL (13.0-16.0)
[2017-01-28 05:13] LABS: BLOOD UREA NITROGEN 5 mg/dL (9-23); CALCIUM SERUM 7.3 mg/dL (8.4-10.2); CARBON DIOXIDE 26 mmol/L (22-31); CHLORIDE 110 mmol/L (100-111); CREATININE SERUM 0.5 mg/dL (0.6-1.4); GLOM FILT RATE Estimated ABOVE60 mL/min (>60); MAGNESIUM 1.4 mg/dL (1.6-3.0); POTASSIUM 3.1 mmol/L (3.5-5.1); SODIUM 136 mmol/L (135-145)
[2017-01-28 05:21] LABS: GLUCOSE FASTING 127 mg/dL (70-110)
[2017-01-28 07:43] LABS: PLATELET ESTIMATE NORMAL (NORMAL)
[2017-01-28 07:44] LABS: ANISOCYTOSIS MOD
[2017-01-28 07:45] LABS: HYPOCHROMIA SL; MICROCYTOSIS MOD; TEAR DROP CELLS PRESENT
[2017-01-28 15:21] LABS: HEMATOCRIT 30.6 % (38.0-50.0); HEMOGLOBIN 9.3 gm/dL (13.0-16.0)
[2017-01-29 04:58] LABS: BASOPHIL% 0.4 % (0-2.5); DIFF IND NO; EOSINOPHIL# 1.3 X10e3 (0-0.7); EOSINOPHIL% 10.2 % (0.0-7.0); HEMATOCRIT 32.1 % (38.0-50.0); HEMOGLOBIN 9.8 gm/dL (13.0-16.0); LYMPHOCYTE# 4.6 X10e3 (1.0-3.5); LYMPHOCYTE% 37.4 % (17.0-45.0); MEAN CELL VOLUME 67.2 FL (83-96); MEAN CORPUSCULAR HEMOGLOBIN 20.5 PG (28-34); MEAN CORPUSCULAR HGB CONC 30.4 g/dL (30-36); MEAN PLATELET VOLUME 8.8 FL (6.5-11.5); MONOCYTE# 1.3 X10e3 (0-1.0); MONOCYTE% 10.6 % (3.0-12.0); NEUTROPHIL# 5.2 X10e3 (1.5-7.1); NEUTROPHIL% 41.4 % (40-75); PLATELET COUNT 244 X10e3 (140-420); RED BLOOD COUNT 4.78 X10e (3.90-5.60); RED CELL DISTRIBUTION WIDTH 24.6 % (11.0-15.5); WHITE BLOOD COUNT 12.4 X10e3 (4.0-10.5)
[2017-01-29 06:36] LABS: FOLATE (FOLIC ACID) >23.6 ng/mL (>5.8)
[2017-01-29 06:43] LABS: ALBUMIN SERUM 2.3 g/dL (3.5-5.0); ALKALINE PHOSPHATASE 63 U/L (32-92); ALT (SGPT) 12 U/L (10-40); AST (SGOT) 26 U/L (10-42); BILIRUBIN,TOTAL 0.4 mg/dL (0.2-2.0); CALCIUM SERUM 7.6 mg/dL (8.4-10.2); CARBON DIOXIDE 24 mmol/L (22-31); CHLORIDE 108 mmol/L (100-111); CREATININE SERUM 0.6 mg/dL (0.6-1.4); GLOM FILT RATE Estimated ABOVE60 mL/min (>60); GLUCOSE FASTING 78 mg/dL (70-110); IRON SERUM 25 ug/dL (45-182); POTASSIUM 4.1 mmol/L (3.5-5.1); PROTEIN TOTAL SERUM 5.7 g/dL (6.0-8.3); SODIUM 135 mmol/L (135-145); TOTAL IRON BINDING CAPACITY 198 ug/dL (252-460); TRANSFERRIN 142 mg/dL (180-329); TRANSFERRIN SATURATION 13 % (20-50)
[2017-01-29 06:46] LABS: BLOOD UREA NITROGEN <5 mg/dL (9-23); BUN/CREATININE RATIO 8.33
[2017-01-29 10:50] LABS: ARTERIAL BLD GAS O2 SATURATION 98.1 % (90.0-100.0); ARTERIAL BLOOD GAS CARBOXY HB 0.2 %sat (0.0-9.0); ARTERIAL BLOOD GAS HCO3 24.2 mmol/L; ARTERIAL BLOOD GAS MET HB 0.9 %sat (0.0-2.0); ARTERIAL BLOOD GAS PCO2 36.6 mmHg (35.0-45.0); ARTERIAL BLOOD GAS pH 7.429 (7.350-7.450)
[2017-01-29 10:51] LABS: ARTERIAL BLOOD GAS ART SITE RIGHT RADIAL; ARTERIAL BLOOD GAS DELIVERY VENT; ARTERIAL BLOOD GAS VENT MODE CPAP; ARTERIAL DRAW? YES
[2017-01-30 04:24] LABS: BASOPHIL% 0.3 % (0-2.5); EOSINOPHIL% 8.7 % (0.0-7.0); HEMOGLOBIN 9.9 gm/dL (13.0-16.0); LYMPHOCYTE# 3.6 X10e3 (1.0-3.5); LYMPHOCYTE% 30.4 % (17.0-45.0); MEAN CELL VOLUME 67.1 FL (83-96); MEAN CORPUSCULAR HEMOGLOBIN 20.7 PG (28-34); MEAN CORPUSCULAR HGB CONC 30.8 g/dL (30-36); MEAN PLATELET VOLUME 8.6 FL (6.5-11.5); MONOCYTE% 8.4 % (3.0-12.0); NEUTROPHIL# 6.2 X10e3 (1.5-7.1); NEUTROPHIL% 52.2 % (40-75); PLATELET COUNT 236 X10e3 (140-420); RED BLOOD COUNT 4.77 X10e (3.90-5.60); WHITE BLOOD COUNT 11.8 X10e3 (4.0-10.5)
[2017-01-30 04:25] LABS: DIFF IND NO
[2017-01-30 04:46] LABS: ALBUMIN SERUM 2.4 g/dL (3.5-5.0); ALKALINE PHOSPHATASE 65 U/L (32-92); ALT (SGPT) 12 U/L (10-40); AST (SGOT) 23 U/L (10-42); BILIRUBIN,TOTAL 0.5 mg/dL (0.2-2.0); CALCIUM SERUM 7.3 mg/dL (8.4-10.2); CARBON DIOXIDE 28 mmol/L (22-31); CHLORIDE 106 mmol/L (100-111); CREATININE SERUM 0.6 mg/dL (0.6-1.4); GLOM FILT RATE Estimated ABOVE60 mL/min (>60); GLUCOSE FASTING 77 mg/dL (70-110); POTASSIUM 3.2 mmol/L (3.5-5.1); PROTEIN TOTAL SERUM 6.1 g/dL (6.0-8.3); SODIUM 134 mmol/L (135-145)
[2017-01-30 04:47] LABS: BLOOD UREA NITROGEN <5 mg/dL (9-23); BUN/CREATININE RATIO 8.33
[2017-01-31] MEDS ORDERED: VIMPAT PEG (11:03)
[2017-01-31] MEDS ORDERED: PROTONIX PEG (11:04)
[2017-01-31] MEDS ORDERED: FEROSUL325 ( 651 PEG (11:05)
[2017-01-31] MEDS ORDERED: AUGMENTIN875 MG PEG (11:06)
[2017-01-31] MEDS ORDERED: DILANTIN PEG (11:07)
[2017-01-31] MEDS ORDERED: KEPPRA500 MG PEG (11:08)
== END 2017-02-01 10:30 | disposition home health service (06) | DRG 100 ==
LOC: CED 20:25 → CEDOF 23:50 → CICCU3 01-27 01:12 → C5B 01-30 23:04
PROVIDERS: Emergency Medicine; Family Medicine; Internal Medicine; Internal Medicine Pulmonary Disease
PROC: 5A1945Z Respiratory Ventilation, 24-96 Consecutive Hours (ICD-10-PCS; 2017-01-26)
PROC: 0BH17EZ Insertion of Endotracheal Airway into Trachea, Via Natural or Artificial Opening (ICD-10-PCS; 2017-01-26)
PROC: 05HN33Z Insertion of Infusion Device into Left Internal Jugular Vein, Percutaneous Approach (ICD-10-PCS; 2017-01-27)
PROC: B544ZZA Ultrasonography of Left Jugular Veins, Guidance (ICD-10-PCS; 2017-01-27)
PROC: 30233N1 Transfusion of Nonautologous Red Blood Cells into Peripheral Vein, Percutaneous Approach (ICD-10-PCS; principal; 2017-01-28)
DX: G40.911 Epilepsy, unspecified, intractable, with status epilepticus (principal); J96.01 Acute respiratory failure with hypoxia; J69.0 Pneumonitis due to inhalation of food and vomit; G24.8 Other dystonia; G80.9 Cerebral palsy, unspecified; D50.9 Iron deficiency anemia, unspecified; Z82.0 Family history of epilepsy and other diseases of the nervous system; Z93.1 Gastrostomy status; B96.1 Klebsiella pneumoniae [K. pneumoniae] as the cause of diseases classified elsewhere; Z88.5 Allergy status to narcotic agent; Z88.8 Allergy status to other drugs, medicaments and biological substances; M62.3 Immobility syndrome (paraplegic)
CPT/HCPCS: 31500; 36415; 36600; 70450; 71010; 80048; 80053; 80076; 80184; 80202; 80307; 81003; 82308; 82607; 82728; 82746; 82803; 82947; 83540; 83550; 83605; 83735; 84132; 85014; 85018; 85025; 86850; 86900; 86901; 86923; 87040; 87070; 87077; 87186; 87205; 87449; 87633; 87804; 87899; 93005; 94002; 94003; 94640; 94760; 94761; 95816; 96365; 96367; 99291; C9113; C9254; J0330; J0456; J1165; J1644; J1953; J2060; J2250; J2543; J2916; J3260; J3370; J3475; P9016

== ENCOUNTER 2017-03-12 21:12 | Emergency (ER) | payer OTHER ==
--- NOTE | ~2017-03-12 | EKG ---
PATIENT: YESI ALLEN UNIT #: [id number] Ventricular Rate: 98 BPM Atrial Rate: 98 BPM P-R Interval: 132 ms QRS Duration: 70 ms Q-T Interval: 300 ms QTC Calculation(Bezet): 383 ms P Winona: 59 degrees Calculated R [place]: 11 degrees Calculated T Win[place]: 40 degrees Diagnosis Line: Normal sinus rhythm Diagnosis Line: Nonspecific ST and T wave abnormality Diagnosis Line: Abnormal ECG Diagnosis Line: No previous ECGs available Diagnosis Line: Confirmed by MARLON SIMONS MD ([id number]) on Diagnosis Line: 03/13/2017 11:13:26 PM INTERPRETING MD: CHAITANYA
--- NOTE | ~2017-03-12 | CR71 ---
[facility] A Service of [facility] & [facility] RADIOLOGY TEXT RESULTS PATIENT: YESI ALLEN LOCATION: [facility] : [birth year] UNIT #: [id number] AGE: [address]: Marco Church MD SEX: M ORDER DR: [id number] [facility] [address] [place], [place] [address] [id number] MR#: [id number] Acc #: [id number] NAME: YESI ALLEN : 1995 SEX: M STUDY DATE/TIME: 03/12/2017 19:42 UNIT: [facility] ROOM: STUDY DESCRIPTION: CR Chest Single View Attending Physician: Marco Church M.D. Ordering Physician: Marco Church M.D. Primary Care Physician: Bre Rios M.D. MEDICAL IMAGING REPORT This report is preliminary unless electronic signature is present EXAM Portable chest. HISTORY Seizure today. ETT placement. Respiratory failure. FINDINGS ETT tip is 4.4 cm above the art. Moderately extensive bilateral interstitial infiltrates with more focal subsegmental infiltrate in the inferior right upper lobe. Differential considerations include pneumonia or edema. Moderately severe right lower thoracic curve. Power pack over the left mid-chest with stimulator lead coiled at the left lower neck. Dictated by... Jamshid Walsh M.D. THIS IS AN ELECTRONICALLY VERIFIED REPORT Jamshid Walsh M.D. at 03/12/2017 8:52 PM BRONSONL/arron TD: 03/12/2017 20:14 JOB #: [id number] MEDICAL IMAGING REPORT Page 1 of 1 COPY
[2017-03-12 19:49] LABS: ARTERIAL BLD GAS O2 SATURATION 99.1 % (90.0-100.0); ARTERIAL BLOOD GAS CARBOXY HB 0.1 %sat (0.0-9.0); ARTERIAL BLOOD GAS HCO3 25.7 mmol/L; ARTERIAL BLOOD GAS MET HB 0.7 %sat (0.0-2.0); ARTERIAL BLOOD GAS PCO2 33.6 mmHg (35.0-45.0); ARTERIAL BLOOD GAS pH 7.493 (7.350-7.450)
[2017-03-12 19:51] LABS: BASOPHIL% 0.6 % (0-2.5); EOSINOPHIL# 0.3 X10e3 (0-0.7); EOSINOPHIL% 4.5 % (0.0-7.0); HEMATOCRIT 38.9 % (38.0-50.0); HEMOGLOBIN 12.3 gm/dL (13.0-16.0); LYMPHOCYTE# 2.1 X10e3 (1.0-3.5); LYMPHOCYTE% 33.5 % (17.0-45.0); MEAN CELL VOLUME 74.9 FL (83-96); MEAN CORPUSCULAR HEMOGLOBIN 23.6 PG (28-34); MEAN CORPUSCULAR HGB CONC 31.5 g/dL (30-36); MEAN PLATELET VOLUME 8.8 FL (6.5-11.5); MONOCYTE# 0.5 X10e3 (0-1.0); MONOCYTE% 8.5 % (3.0-12.0); NEUTROPHIL# 3.4 X10e3 (1.5-7.1); NEUTROPHIL% 52.9 % (40-75); PLATELET COUNT 346 X10e3 (140-420); RED BLOOD COUNT 5.19 X10e (3.90-5.60); RED CELL DISTRIBUTION WIDTH 33.2 % (11.0-15.5); WHITE BLOOD COUNT 6.4 X10e3 (4.0-10.5)
[2017-03-12 19:51] LABS: ARTERIAL BLOOD GAS ALLEN TEST NORMAL; ARTERIAL BLOOD GAS ART SITE LEFT RADIAL; ARTERIAL BLOOD GAS DELIVERY VENT; ARTERIAL BLOOD GAS VENT MODE AC; ARTERIAL DRAW? YES
[2017-03-12 19:55] LABS: DIFF IND YES
[2017-03-12 20:13] LABS: ALBUMIN SERUM 3.1 g/dL (3.5-5.0); ALKALINE PHOSPHATASE 104 U/L (32-92); ALT (SGPT) 54 U/L (10-40); AST (SGOT) 51 U/L (10-42); BILIRUBIN,TOTAL 0.1 mg/dL (0.2-2.0); BLOOD UREA NITROGEN 12 mg/dL (9-23); BUN/CREATININE RATIO 17.14; CALCIUM SERUM 8.6 mg/dL (8.4-10.2); CARBON DIOXIDE 26 mmol/L (22-31); CHLORIDE 99 mmol/L (100-111); CREATININE SERUM 0.7 mg/dL (0.6-1.4); GLOM FILT RATE Estimated 155.3 mL/min (>60); GLUCOSE FASTING 75 mg/dL (70-110); PROTEIN TOTAL SERUM 8.3 g/dL (6.0-8.3); SODIUM 134 mmol/L (135-145)
[2017-03-12 20:14] LABS: BILIRUBIN, DIRECT <0.1 mg/dL (0.0-0.2); HYPOCHROMIA SL; MICROCYTOSIS SL; SPHEROCYTE MOD
[2017-03-12 20:15] LABS: ACANTHOCYTES PRESENT; POIKILOCYTOSIS MOD
[2017-03-12 20:16] LABS: OVALOCYTES PRESENT; PLATELET ESTIMATE NORMAL (NORMAL)
[2017-03-12 20:51] LABS: URINE APPEARANCE CLEAR; URINE BILIRUBIN NEG (NEG); URINE BLOOD NEG (NEG); URINE COLOR YELLOW; URINE GLUCOSE NEG (NEG); URINE KETONE NEG (NEG); URINE LEUKOCYTE ESTERASE NEG (NEG); URINE NITRATE NEG (NEG); URINE PROTEIN NEG (NEG); URINE SPECIFIC GRAVITY 1.021 (1.003-1.035)
[2017-03-12 20:59] LABS: CULTURE INDICATED? NO
[~2017-03-12 21:12] MED LIST: ACIDOPHILUS LAC1 CAP PO; ALBUTEROL 0.5ML INH; AUGMENTIN875 MG PEG; BANZEL40 MG/1 ML PO; CALCIUM CARBO1000 MG PO; CARAFATE GT; DIAZEPAM GT; DIAZEPAM PR; DILANTIN PEG; FEROSUL325 ( 651 PEG; FYCOMPA10 MG PO; KEPPRA500 MG PEG; KLONOPIN1 MG GT; MAALOX SUSPENS355 ML DOB; METHADOSE5 MG GT; PHENOBARBITAL97.2 MG PO; PROTONIX PEG; TYLENOL325 MG/10. GT; VIMPAT PEG; VIMPAT200 MG DOB
== END 2017-03-13 00:05 | disposition short-term general hospital (02) ==
LOC: CED 21:12
PROVIDERS: Emergency Medicine
DX: G40.201 Localization-related (focal) (partial) symptomatic epilepsy and epileptic syndromes with complex partial seizures, not intractable, with status epilepticus (principal)
CPT/HCPCS: 31500; 36600; 71010; 80048; 80076; 80184; 80185; 81003; 82803; 82947; 85025; 93005; 94002; 96365; 96367; 99291; J0330; J2250; J2543; J2560; J3370